=== PATIENT | male | born 1945 | race Hispanic/Latino ===

== ENCOUNTER 2019-10-20 07:10 | Emergency (ER) | payer MEDICARE ==
[~2019-10-20] VITALS: Ht 167.6 cm; Wt 75.7 kg
[2019-10-20] MEDS ORDERED: MACROBID 100 M100 MG PO (07:43)
--- NOTE | 2019-10-20 07:43 | Emergency Department Note ---
History of Present Illnes History of Present Illness Chief Complaint: suprapubic pain, unable to urinate History of Present Illness This is a 74 year old male. h/o bph, urinary retention and is on flomax. 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 History limited by: condition of the patient Onset (how long ago): hour(s) (5.5) Location: suprapubic Quality: sharp Radiation: Reports non-radiation Severity: moderate Onset quality: gradual Duration (how long): hour(s) (5.5) Timing of current episode: constant Progression: worsening Chronicity: recurrent Context: Denies recent illness, Denies recent surgery, Denies recent immobilization, Denies trauma/injury, Denies new medications, Denies hx of DVT/PE, Denies non-compliance w/ medications Relieving factors: none Exacerbating factors: none Associated symptoms: Reports denies other symptoms Treatments prior to arrival: none Past Medical/Family History Physician Review I have reviewed the patient's past medical and family history. Any updates have been documented here. Past Medical History Recent Fever: No Clinical Suspicion of Infectio: No New/Unexplained Change in Ment: No Past Medical History: Hypertension, Diabetes Other Medical History: BPH Social History Smoking Cessation: Never Smoker Alcohol Use: None Any Illegal Drug Use: No Other Any Pre-Existing Lines (PICC,: No Review of Systems Review of Systems Constitutional: Reports no symptoms EENTM: Reports no symptoms Cardiovascular: Reports no symptoms Respiratory: Reports no symptoms Gastrointestinal: Reports as per HPI, Reports abdominal pain Genitourinary: Reports as per HPI Musculoskeletal: Reports no symptoms Integumentary: Reports no symptoms Neurological: Reports no symptoms Psychological: Reports no symptoms Endocrine: Reports no symptoms Hematological/Lymphatic: Reports no symptoms Review of other systems: All other systems negative Physical Exam Related Data Vital signs reviewed: Yes Physical Exam CONSTITUTIONAL Constitutional: Present well-developed, Present well-nourished HENT HENT: Present normocephalic, Present atraumatic, Present oropharynx eloina r/moist, Present nose normal HENT L/R: Present left ext ear normal, Present right ext ear normal EYES Eyes: Reports PERRL, Reports conjunctivae normal NECK Neck: Present ROM normal PULMONARY Pulmonary: Present effort normal, Present breath sounds normal CARDIOVASCULAR Cardiovascular: Present regular rhythm, Present heart sounds normal, Present capillary refill normal, Present normal rate GASTROINTESTINAL Abdominal: Present soft, Present bowel sounds normal, Present distension, Present tender (suprapubic), Present guarding GENITOURINARY Genitourinary: Present exam deferred SKIN Skin: Present warm, Present dry MUSCULOSKELETAL Musculoskeletal: Present ROM normal NEUROLOGICAL Neurological: Present alert, Present oriented x 3, Present no gross motor or sensory deficits PSYCHOLOGICAL Psychological: Present mood/affect normal, Present judgement normal Assessment & Plan Medical Decision Making MDM 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
== END 2019-10-20 08:01 | disposition home or self-care (01) ==
LOC: FSED 07:27
DX: R33.9 Retention of urine, unspecified (principal); N40.1 Benign prostatic hyperplasia with lower urinary tract symptoms; R10.30 Lower abdominal pain, unspecified; I10 Essential (primary) hypertension; E11.9 Type 2 diabetes mellitus without complications
CPT/HCPCS: 51700; 99283

== ENCOUNTER 2019-10-20 19:24 | Emergency (ER) | payer MEDICARE ==
[~2019-10-20] VITALS: Ht 167.6 cm; Wt 75.7 kg
[~2019-10-20 19:24] MED LIST: MACROBID 100 M100 MG PO
--- NOTE | 2019-10-20 19:49 | NUR ---
REMOVED EXISTING MCKENZIE, MCKENZIE INTACT, PLACED NEW MCKENZIE CATH SIZE 18 AZERI, INSTRUCTED PT TO MCKENZIE UP WITH UROLOGIST, PT STATED HE HAS AN APPOINTMENT ON THE OF THIS MONTH.
--- NOTE | 2019-10-20 19:55 | Emergency Department Note ---
History of Present Illnes History of Present Illness Chief Complaint: urine leaking around curtis History of Present Illness This is a 74 year old male. pt had curtis placement today by me secondary to urinary retention secondary to bph Historian: Patient Arrival Mode: Car History limited by: condition of the patient Onset (how long ago): hour(s) (4) Location: penis Quality: moderate Radiation: Reports non-radiation Severity: moderate Onset quality: gradual Duration (how long): hour(s) (4) Timing of current episode: intermittent Progression: unchanged Chronicity: new Context: Denies recent illness, Denies recent surgery, Denies recent immobilization, Denies recent travel, Denies trauma/injury, Denies new medications, Denies hx of DVT/PE, Denies non-compliance w/ medications Relieving factors: none Exacerbating factors: none Associated symptoms: Reports denies other symptoms Treatments prior to arrival: none Past Medical/Family History Physician Review I have reviewed the patient's past medical and family history. Any updates have been documented here. Past Medical History Recent Fever: No Clinical Suspicion of Infectio: No New/Unexplained Change in Ment: No Past Medical History: Hypertension, Diabetes Other Medical History: BPH Past Surgical History: None Social History Smoking Cessation: Never Smoker Counseling Performed: No Alcohol Use: None Any Illegal Drug Use: No Other Any Pre-Existing Lines (PICC,: No Review of Systems Review of Systems Constitutional: Reports no symptoms EENTM: Reports no symptoms Cardiovascular: Reports no symptoms Respiratory: Reports no symptoms Gastrointestinal: Reports no symptoms Genitourinary: Reports as per HPI Musculoskeletal: Reports no symptoms Integumentary: Reports no symptoms Neurological: Reports no symptoms Psychological: Reports no symptoms Endocrine: Reports no symptoms Hematological/Lymphatic: Reports no symptoms Review of other systems: All other systems negative Physical Exam Related Data Triage Vital Signs Vital Signs Date Time Temp Pulse Resp B/P (MAP) Pulse Ox O2 Delivery O2 Flow Rate FiO2 10/20/19 19:41 98.4 94 16 167/84 98 Room Air Vital signs reviewed: Yes Physical Exam CONSTITUTIONAL Constitutional: Present well-developed, Present well-nourished HENT HENT: Present normocephalic, Present atraumatic, Present oropharynx clear/moist, Present nose normal HENT L/R: Present left ext ear normal, Present right ext ear normal EYES Eyes: Reports PERRL, Reports conjunctivae normal NECK Neck: Present ROM normal PULMONARY Pulmonary: Present effort normal, Present breath sounds normal CARDIOVASCULAR Cardiovascular: Present regular rhythm, Present heart sounds normal, Present capillary refill normal, Present normal rate GASTROINTESTINAL Abdominal: Present soft, Present nontender, Present bowel sounds normal GENITOURINARY Genitourinary: Present penis normal (curtis catheter in place) SKIN Skin: Present warm, Present dry MUSCULOSKELETAL Musculoskeletal: Present ROM normal NEUROLOGICAL Neurological: Present alert, Present oriented x 3, Present no gross motor or sensory deficits PSYCHOLOGICAL Psychological: Present mood/affect normal, Present judgement normal Assessment & Plan Medical Decision Making MDM urinary incontinence Reassessment Reassessment curtis was changed to a larger curtis(17 [place] island[place]) Assessment & Plan Final Impression: (1) Urinary incontinence Depart Disposition: HOME, SELF-CARE Last Vital Signs Date Time Temp Pulse Resp B/P (MAP) Pulse Ox O2 Delivery O2 Flow Rate FiO2 10/20/19 19:41 98.4 94 16 167/84 98 Room Air Home Meds Active Scripts Nitrofurantoin Monohyd/M-Cryst (MACROBID 100 MG CAPSULE) 100 Mg Capsule, 100 MG PO Q12H for 14 Days, #28 CAP Prov:MARIE HARE 10/20/19 MARIE HARE Oct 20, 2019 19:54
== END 2019-10-20 20:15 | disposition home or self-care (01) ==
LOC: FSED 19:46
DX: R32 Unspecified urinary incontinence (principal); I10 Essential (primary) hypertension; E11.9 Type 2 diabetes mellitus without complications
CPT/HCPCS: 51700; 99283

== ENCOUNTER 2022-05-12 18:12 | Inpatient (IN) | payer MEDICARE ==
[~2022-05-12] VITALS: Ht 167.6 cm; Wt 64.9 kg
[~2022-05-12 18:12] MED LIST changes: +NAPROXEN250 MG PO
[2022-05-12] MEDS ORDERED: ONDANSETRON HCL INJ 2MG/ML 2ML 2 MG/ML VIAL IV STA (18:39)
[2022-05-12] MEDS ORDERED: SODIUM CHLORIDE FLUSH 10 ML SYR IV PRN (18:45)
[2022-05-12] MEDS ORDERED: ASPIRIN 81 MG CHEW TAB PO ONE ×2 (18:45→21:45)
[2022-05-12 18:46] LABS: BASOPHILS % 0.6 % (0.0-1.0); EOSINOPHILS % 0.5 % (0.0-6.0); HEMATOCRIT 34.2 % (38.2-49.6); HEMOGLOBIN 10.8 g/dL (14.0-18.0); LYMPHOCYTES # (AUTO) 2.5 (1.0-3.2); LYMPHOCYTES % 39.7 % (18.0-39.1); MEAN CORPUSCULAR HEMOGLOBIN 27.6 pg (28-32); MEAN CORPUSCULAR HGB CONC 31.6 g/dL (31-35); MEAN CORPUSCULAR VOLUME 87.2 fL (81-99); MONOCYTES # (AUTO) 0.5 (0.2-0.8); MONOCYTES % 8.5 % (4.4-11.3); NEUTROPHILS # (AUTO) 3.2 (2.1-6.9); NEUTROPHILS % 50.5 % (38.7-80.0); PLATELET COUNT 210 x10e3/uL (140-360); RED BLOOD COUNT 3.92 x10e6/uL (4.3-5.7); RED CELL DISTRIBUTION WIDTH 16.6 % (11.7-14.4)
[2022-05-12 19:00] LABS: ALBUMIN 2.7 g/dL (3.5-5.0); ALBUMIN/GLOBULIN RATIO 0.8 (0.8-2.0); CALCIUM 9.2 mg/dL (8.4-10.2); CREATININE, SERUM 1.21 mg/dL (0.72-1.25)
[2022-05-12] MEDS ORDERED: ONDANSETRON HCL INJ 2MG/ML 2ML 2 MG/ML VIAL IV PRN (21:45)
[2022-05-12] MEDS ORDERED: SODIUM CHLORIDE FLUSH 10 ML SYR INJ PRN (21:45)
[2022-05-13] VITALS (9 sets, daily range): BP systolic 128–143; BP diastolic 64–75
[2022-05-13] MEDS: ENOXAPARIN SOD INJ 60 MG/0.6 ML SYR SC SCH ×3 (00:30→21:52)
[2022-05-13 08:02] LABS: BASOPHILS # (AUTO) 0.1 (0.0-0.1); BASOPHILS % 0.9 % (0.0-1.0); EOSINOPHILS # (AUTO) 0.1 (0.0-0.4); EOSINOPHILS % 1.8 % (0.0-6.0); HEMATOCRIT 31.2 % (38.2-49.6); HEMOGLOBIN 9.9 g/dL (14.0-18.0); LYMPHOCYTES # (AUTO) 2.2 (1.0-3.2); LYMPHOCYTES % 34.3 % (18.0-39.1); MEAN CORPUSCULAR HEMOGLOBIN 27.6 pg (28-32); MEAN CORPUSCULAR HGB CONC 31.7 g/dL (31-35); MEAN CORPUSCULAR VOLUME 86.9 fL (81-99); MONOCYTES # (AUTO) 0.6 (0.2-0.8); MONOCYTES % 9.6 % (4.4-11.3); NEUTROPHILS # (AUTO) 3.5 (2.1-6.9); NEUTROPHILS % 53.2 % (38.7-80.0); PLATELET COUNT 192 x10e3/uL (140-360); RED BLOOD COUNT 3.59 x10e6/uL (4.3-5.7); RED CELL DISTRIBUTION WIDTH 16.5 % (11.7-14.4)
[2022-05-13] MEDS: ASPIRIN 81 MG ENTERIC COATED PO SCH (08:41)
[2022-05-13 08:42] LABS: ALBUMIN 2.3 g/dL (3.5-5.0); ALBUMIN/GLOBULIN RATIO 0.8 (0.8-2.0); CALCIUM 8.9 mg/dL (8.4-10.2); CREATININE, SERUM 1.07 mg/dL (0.72-1.25)
[2022-05-13] MEDS ORDERED: FERROUS SULFAT325 MG PO (12:22)
[2022-05-13] MEDS ORDERED: TIMOPTIC 0.5%1 EACH OD (12:22)
[2022-05-13] MEDS ORDERED: CARBIDOPA-LEVO1 EA10 (12:22)
[2022-05-13] MEDS ORDERED: ROSUVASTATIN CA10 MG (12:22)
[2022-05-13] MEDS ORDERED: FLOMAX0.4 MG PO (12:22)
[2022-05-13] MEDS ORDERED: METFORMIN HCL500 MG PO (12:22)
[2022-05-13] MEDS ORDERED: BENICAR20 MG PO (12:22)
[2022-05-13 16:20] LABS: CREATINE KINASE MB 1.9 ng/mL (0-5.0)
[2022-05-13] MEDS: TAMSULOSIN HCL 0.4 MG CAP PO SCH (21:52)
[2022-05-13] MEDS: CARBIDOPA/LEVODOPA 25/100 TAB PO SCH (21:52)
[2022-05-14] VITALS (8 sets, daily range): BP systolic 105–133; BP diastolic 59–70
[2022-05-14 00:45] LABS: % IRON SATURATION 8 % (15-50); IRON 22 ug/dL (65-175); TOTAL IRON BINDING CAPACITY 286 ug/dL (261-478); TRANSFERRIN 204 mg/dL (174-364)
[2022-05-14 06:44] LABS: BASOPHILS # (AUTO) 0.1 (0.0-0.1); BASOPHILS % 0.9 % (0.0-1.0); EOSINOPHILS # (AUTO) 0.1 (0.0-0.4); EOSINOPHILS % 1.9 % (0.0-6.0); HEMATOCRIT 28.1 % (38.2-49.6); HEMOGLOBIN 8.9 g/dL (14.0-18.0); LYMPHOCYTES % 35.2 % (18.0-39.1); MEAN CORPUSCULAR HEMOGLOBIN 27.3 pg (28-32); MEAN CORPUSCULAR HGB CONC 31.7 g/dL (31-35); MEAN CORPUSCULAR VOLUME 86.2 fL (81-99); MONOCYTES # (AUTO) 0.5 (0.2-0.8); MONOCYTES % 8.3 % (4.4-11.3); NEUTROPHILS # (AUTO) 3.1 (2.1-6.9); NEUTROPHILS % 53.5 % (38.7-80.0); PLATELET COUNT 165 x10e3/uL (140-360); RED BLOOD COUNT 3.26 x10e6/uL (4.3-5.7); RED CELL DISTRIBUTION WIDTH 16.3 % (11.7-14.4)
[2022-05-14 07:09] LABS: ANION GAP 11.9 mmol/L (8-16); CREATININE, SERUM 1.04 mg/dL (0.72-1.25); MAGNESIUM 1.8 MG/DL (1.3-2.1); PHOSPHORUS 3.2 MG/DL (2.3-4.7); POTASSIUM 3.9 mmol/L (3.5-5.1)
[2022-05-14 07:18] LABS: CREATINE KINASE MB 1.8 ng/mL (0-5.0)
[2022-05-14] MEDS: ASPIRIN 81 MG ENTERIC COATED PO SCH (09:36)
[2022-05-14] MEDS: CARBIDOPA/LEVODOPA 25/100 TAB PO SCH (09:36)
[2022-05-14] MEDS: ENOXAPARIN SOD INJ 60 MG/0.6 ML SYR SC SCH ×2 (09:36→21:51)
[2022-05-14] MEDS: TAMSULOSIN HCL 0.4 MG CAP PO SCH (17:46)
[2022-05-15] VITALS (16 sets, daily range): BP systolic 76–116; BP diastolic 48–60
[2022-05-15] MEDS: CARBIDOPA/LEVODOPA 25/100 TAB PO SCH (09:00)
[2022-05-15] MEDS: ASPIRIN 81 MG ENTERIC COATED PO SCH (09:00)
[2022-05-15] MEDS: ENOXAPARIN SOD INJ 60 MG/0.6 ML SYR SC SCH ×2 (09:17→21:08)
[2022-05-15] MEDS: IRON SUCROSE 100 MG in SODIUM CHLORIDE 0.9% 100 ML IV SCH (09:18)
[2022-05-15 11:26] LABS: INR 1.25; PROTHROMBIN TIME 16.2 seconds (11.9-14.5)
[2022-05-15 15:45] LABS: BASOPHILS % 0.3 % (0.0-1.0); HEMATOCRIT 24.7 % (38.2-49.6); LYMPHOCYTES # (AUTO) 1.6 (1.0-3.2); LYMPHOCYTES % 28.3 % (18.0-39.1); MEAN CORPUSCULAR HEMOGLOBIN 27.8 pg (28-32); MEAN CORPUSCULAR HGB CONC 32.4 g/dL (31-35); MEAN CORPUSCULAR VOLUME 85.8 fL (81-99); MONOCYTES # (AUTO) 0.4 (0.2-0.8); MONOCYTES % 6.4 % (4.4-11.3); NEUTROPHILS # (AUTO) 3.7 (2.1-6.9); NEUTROPHILS % 64.8 % (38.7-80.0); PLATELET COUNT 183 x10e3/uL (140-360); RED BLOOD COUNT 2.88 x10e6/uL (4.3-5.7); RED CELL DISTRIBUTION WIDTH 16.6 % (11.7-14.4)
[2022-05-15 16:04] LABS: ANION GAP 14.1 mmol/L (8-16); CALCIUM 8.4 mg/dL (8.4-10.2); CREATININE, SERUM 1.12 mg/dL (0.72-1.25); POTASSIUM 4.1 mmol/L (3.5-5.1)
[2022-05-15] MEDS: TAMSULOSIN HCL 0.4 MG CAP PO SCH (17:00)
[2022-05-15 17:51] LABS: ABG PH 7.63 (7.35-7.45)
[2022-05-15] MEDS: LACTATED RINGER'S 1,000 ML INJ SCH (17:56)
[2022-05-16] VITALS (37 sets, daily range): BP systolic 70–113; BP diastolic 45–91
[2022-05-16] MEDS: LACTATED RINGER'S 1,000 ML INJ SCH ×3 (03:36→21:31)
[2022-05-16] MEDS ORDERED: RIFAXIMIN 550 MG TABLET PO STA (03:57)
[2022-05-16] MEDS ORDERED: LACTULOSE SYRUP 20 GM/30 ML UDC RC ONE (04:00)
[2022-05-16] MEDS ORDERED: LACTULOSE SYRUP 20 GM/30 ML UDC ONE (04:12)
[2022-05-16 06:36] LABS: BASOPHILS % 0.3 % (0.0-1.0); HEMATOCRIT 21.6 % (38.2-49.6); HEMOGLOBIN 7.1 g/dL (14.0-18.0); LYMPHOCYTES # (AUTO) 1.2 (1.0-3.2); LYMPHOCYTES % 16.2 % (18.0-39.1); MEAN CORPUSCULAR HEMOGLOBIN 27.4 pg (28-32); MEAN CORPUSCULAR HGB CONC 32.9 g/dL (31-35); MEAN CORPUSCULAR VOLUME 83.4 fL (81-99); MONOCYTES # (AUTO) 0.4 (0.2-0.8); MONOCYTES % 4.8 % (4.4-11.3); NEUTROPHILS # (AUTO) 5.8 (2.1-6.9); NEUTROPHILS % 78.3 % (38.7-80.0); PLATELET COUNT 211 x10e3/uL (140-360); RED BLOOD COUNT 2.59 x10e6/uL (4.3-5.7); RED CELL DISTRIBUTION WIDTH 16.6 % (11.7-14.4)
[2022-05-16 07:06] LABS: ALBUMIN 1.9 g/dL (3.5-5.0); ALBUMIN/GLOBULIN RATIO 0.7 (0.8-2.0); ANION GAP 15.4 mmol/L (8-16); CALCIUM 8.2 mg/dL (8.4-10.2); CREATININE, SERUM 1.55 mg/dL (0.72-1.25); POTASSIUM 3.4 mmol/L (3.5-5.1)
[2022-05-16] MEDS: ASPIRIN 81 MG ENTERIC COATED PO SCH (08:21)
[2022-05-16] MEDS: RIFAXIMIN 550 MG TABLET PO SCH ×2 (08:21→16:05)
[2022-05-16] MEDS: LACTULOSE SYRUP 20 GM/30 ML UDC PO SCH ×2 (08:21→16:05)
[2022-05-16] MEDS: IRON SUCROSE 100 MG in SODIUM CHLORIDE 0.9% 100 ML IV SCH (10:00)
[2022-05-16 10:10] LABS: BODY FLUID APPEARANCE SL.CLOUDY; BODY FLUID COLOR YELLOW; BODY FLUID TYPE PERITONEAL; RBC,BODY FLUID 1000 cells/uL; WBC,BODY FLUID 221 cells/uL
[2022-05-16 10:43] LABS: LYMPHOCYTES,BODY FLUID 76 %
[2022-05-16 11:06] LABS: OTHER CELLS,BODY FLUID 24 %
[2022-05-16] MEDS ORDERED: LACTULOSE SYRUP 20 GM/30 ML UDC RC SCH (12:00)
[2022-05-16] MEDS ORDERED: ALBUMIN 25% 25GM 100ML 0.25 GM/ML BTL IV ONE (15:30)
[2022-05-16] MEDS ORDERED: VASOPRESSIN 60 UNIT in DEXTROSE 5% 50ML 57 ML IV SCH (15:30)
[2022-05-16] MEDS ORDERED: ALBUMIN 25% 25GM 100ML 200 ML IV ONE (16:00)
[2022-05-16] MEDS: TAMSULOSIN HCL 0.4 MG CAP PO SCH (16:05)
[2022-05-16] MEDS ORDERED: SODIUM CHLORIDE 0.9% 250ML 250 ML IV ONE (16:15)
[2022-05-16 16:27] LABS: ABG HCO3 17 mmol/L (22-26); ABG PCO2 17 mmHg (35-45); ABG PH 7.61 (7.35-7.45); ABG PO2 103 mmHg (80-105); ABG TCO2 17
[2022-05-16] MEDS ORDERED: HEPARIN SOD (PORCINE) 5,000 UNIT/ML VIAL SC SCH (21:00)
[2022-05-17] VITALS (61 sets, daily range): BP systolic 79–140; BP diastolic 47–85
[2022-05-17 01:08] LABS: CLARITY,URINE TURBID (CLEAR); COLOR,URINE RED (YELLOW); KETONES,URINE 1+ (NEGATIVE); LEUKOCYTE ESTERASE ,URINE LARGE (NEGATIVE); NITRITE,URINE POSITIVE (NEGATIVE); PROTEIN,URINE DIPSTICK >=300 (NEGATIVE); RBC,URINE >50 /HPF (0-5); URINE UROBILINOGEN 1 mg/dL (0.2 - 1)
[2022-05-17 01:09] LABS: BACTERIA,URINE FEW /HPF; EPITHELIAL CELLS,URINE RARE /LPF
[2022-05-17 01:20] LABS: CREATININE,URINE RANDOM 47.51 mg/dL (63-166); SODIUM,URINE 40 mmol/L
[2022-05-17 01:32] LABS: TOTAL PROTEIN, URINE 1394.2 mg/dL (1-14)
[2022-05-17] MEDS ORDERED: SODIUM CHLORIDE 0.9% 250ML 250 ML ONE (01:49)
[2022-05-17 07:04] LABS: BASOPHILS % 0.1 % (0.0-1.0); HEMATOCRIT 24.6 % (38.2-49.6); HEMOGLOBIN 8.1 g/dL (14.0-18.0); LYMPHOCYTES # (AUTO) 2.2 (1.0-3.2); LYMPHOCYTES % 24.3 % (18.0-39.1); MEAN CORPUSCULAR HEMOGLOBIN 27.8 pg (28-32); MEAN CORPUSCULAR HGB CONC 32.9 g/dL (31-35); MEAN CORPUSCULAR VOLUME 84.5 fL (81-99); MONOCYTES # (AUTO) 0.6 (0.2-0.8); MONOCYTES % 6.1 % (4.4-11.3); NEUTROPHILS # (AUTO) 6.2 (2.1-6.9); NEUTROPHILS % 69.3 % (38.7-80.0); PLATELET COUNT 168 x10e3/uL (140-360); RED BLOOD COUNT 2.91 x10e6/uL (4.3-5.7); RED CELL DISTRIBUTION WIDTH 15.5 % (11.7-14.4)
[2022-05-17 07:28] LABS: ALBUMIN 2.3 g/dL (3.5-5.0); ANION GAP 15.1 mmol/L (8-16); CALCIUM 8.2 mg/dL (8.4-10.2); CREATININE, SERUM 1.91 mg/dL (0.72-1.25); POTASSIUM 3.1 mmol/L (3.5-5.1)
[2022-05-17] MEDS: LACTULOSE SYRUP 20 GM/30 ML UDC PO SCH ×2 (08:51→17:00)
[2022-05-17] MEDS: RIFAXIMIN 550 MG TABLET PO SCH ×2 (08:51→17:00)
[2022-05-17] MEDS: IRON SUCROSE 100 MG in SODIUM CHLORIDE 0.9% 100 ML IV SCH (10:23)
[2022-05-17 12:11] LABS: INR 1.34; PROTHROMBIN TIME 17.1 seconds (11.9-14.5)
[2022-05-17 12:12] LABS: PARTIAL THROMBOPLASTIN TIME 50.5 seconds (23.8-35.5)
[2022-05-17 12:37] LABS: HEMATOCRIT 24.8 % (38.2-49.6); HEMOGLOBIN 8.4 g/dL (14.0-18.0)
[2022-05-17] MEDS ORDERED: SODIUM BICARBONATE 8.4% 50 ML in DEXTROSE 5% 1,000 ML IV ONE (13:00)
[2022-05-17] MEDS: TAMSULOSIN HCL 0.4 MG CAP PO SCH (17:00)
[2022-05-17] MEDS: TRAMADOL HCL 50 MG TAB NG PRN (23:14)
[2022-05-18] VITALS (48 sets, daily range): BP systolic 112–161; BP diastolic 53–120
[2022-05-18] MEDS ORDERED: SODIUM CHLORIDE 0.9% 250ML 250 ML ONE ×2 (00:31→07:45)
[2022-05-18] MEDS: TRAMADOL HCL 50 MG TAB NG PRN ×3 (04:43→23:13)
[2022-05-18 06:22] LABS: BASOPHILS % 0.1 % (0.0-1.0); EOSINOPHILS % 0.2 % (0.0-6.0); LYMPHOCYTES # (AUTO) 1.9 (1.0-3.2); LYMPHOCYTES % 22.8 % (18.0-39.1); MEAN CORPUSCULAR HEMOGLOBIN 28.2 pg (28-32); MEAN CORPUSCULAR HGB CONC 32.5 g/dL (31-35); MEAN CORPUSCULAR VOLUME 86.8 fL (81-99); MONOCYTES # (AUTO) 0.5 (0.2-0.8); MONOCYTES % 5.7 % (4.4-11.3); NEUTROPHILS # (AUTO) 5.9 (2.1-6.9); NEUTROPHILS % 70.8 % (38.7-80.0); PLATELET COUNT 163 x10e3/uL (140-360); RED BLOOD COUNT 2.27 x10e6/uL (4.3-5.7); RED CELL DISTRIBUTION WIDTH 16.8 % (11.7-14.4)
[2022-05-18 06:30] LABS: HEMATOCRIT 19.7 % (38.2-49.6)
[2022-05-18 06:31] LABS: HEMOGLOBIN 6.4 g/dL (14.0-18.0)
[2022-05-18 06:41] LABS: ALBUMIN 2.3 g/dL (3.5-5.0); ANION GAP 10.4 mmol/L (8-16); CALCIUM 8.2 mg/dL (8.4-10.2); CREATININE, SERUM 1.67 mg/dL (0.72-1.25)
[2022-05-18 06:45] LABS: POTASSIUM 2.4 mmol/L (3.5-5.1)
[2022-05-18 06:55] LABS: HEMOGLOBIN 6.2 g/dL (14.0-18.0)
[2022-05-18 06:56] LABS: HEMATOCRIT 19.1 % (38.2-49.6)
[2022-05-18] MEDS ORDERED: SODIUM CHLORIDE 0.9% 250ML 250 ML IV ONE (08:30)
[2022-05-18] MEDS: LACTULOSE SYRUP 20 GM/30 ML UDC PO SCH ×3 (09:00→19:06)
[2022-05-18] MEDS: RIFAXIMIN 550 MG TABLET PO SCH ×3 (09:00→19:06)
[2022-05-18] MEDS: POTASSIUM CHLORIDE 20MEQ/100ML 100 ML IV SCH ×2 (10:52→14:49)
[2022-05-18] MEDS: IRON SUCROSE 100 MG in SODIUM CHLORIDE 0.9% 100 ML IV SCH (14:28)
[2022-05-18] MEDS: TAMSULOSIN HCL 0.4 MG CAP PO SCH ×2 (17:00→19:06)
[2022-05-18 18:05] LABS: HEMATOCRIT 26.4 % (38.2-49.6); HEMOGLOBIN 8.7 g/dL (14.0-18.0)
[2022-05-18] MEDS: DEXTROSE 5% 1,000 ML IV SCH (18:34)
[2022-05-18] MEDS ORDERED: POTASSIUM CHLORIDE 20MEQ/100ML 100 ML IV ONE (19:45)
[2022-05-19] VITALS (25 sets, daily range): BP systolic 104–152; BP diastolic 56–81
[2022-05-19 00:48] LABS: HEMATOCRIT 22.5 % (38.2-49.6); HEMOGLOBIN 7.2 g/dL (14.0-18.0)
[2022-05-19 01:29] LABS: INR 1.21; PROTHROMBIN TIME 15.8 seconds (11.9-14.5)
[2022-05-19 01:30] LABS: PARTIAL THROMBOPLASTIN TIME 44.9 seconds (23.8-35.5)
[2022-05-19] MEDS: TRAMADOL HCL 50 MG TAB NG PRN (04:37)
[2022-05-19] MEDS ORDERED: SODIUM CHLORIDE 0.9% 250ML 250 ML ONE (05:31)
[2022-05-19] MEDS ORDERED: DEXMEDETOMIDINE 400MCG/NS100ML 100 ML IV PRN (08:00)
[2022-05-19] MEDS: LACTULOSE SYRUP 20 GM/30 ML UDC PO SCH ×2 (08:13→16:04)
[2022-05-19] MEDS: RIFAXIMIN 550 MG TABLET PO SCH ×2 (08:13→16:04)
[2022-05-19] MEDS: IRON SUCROSE 100 MG in SODIUM CHLORIDE 0.9% 100 ML IV SCH (09:00)
[2022-05-19] MEDS: DEXTROSE 5% 1,000 ML IV SCH (09:26)
[2022-05-19 09:35] LABS: BASOPHILS % 0.1 % (0.0-1.0); EOSINOPHILS # (AUTO) 0.1 (0.0-0.4); EOSINOPHILS % 1.3 % (0.0-6.0); HEMATOCRIT 23.9 % (38.2-49.6); HEMOGLOBIN 7.7 g/dL (14.0-18.0); LYMPHOCYTES % 20.5 % (18.0-39.1); MEAN CORPUSCULAR HEMOGLOBIN 28.4 pg (28-32); MEAN CORPUSCULAR HGB CONC 32.2 g/dL (31-35); MEAN CORPUSCULAR VOLUME 88.2 fL (81-99); MONOCYTES # (AUTO) 0.8 (0.2-0.8); MONOCYTES % 7.8 % (4.4-11.3); NEUTROPHILS # (AUTO) 6.8 (2.1-6.9); NEUTROPHILS % 69.4 % (38.7-80.0); PLATELET COUNT 139 x10e3/uL (140-360); RED BLOOD COUNT 2.71 x10e6/uL (4.3-5.7); RED CELL DISTRIBUTION WIDTH 16.6 % (11.7-14.4)
[2022-05-19 09:56] LABS: ALBUMIN 2.3 g/dL (3.5-5.0); ALBUMIN/GLOBULIN RATIO 0.8 (0.8-2.0); ANION GAP 13.2 mmol/L (8-16); CALCIUM 8.5 mg/dL (8.4-10.2); CREATININE, SERUM 1.43 mg/dL (0.72-1.25); POTASSIUM 3.2 mmol/L (3.5-5.1)
[2022-05-19] MEDS ORDERED: POTASSIUM CHLORIDE 20MEQ/100ML 200 ML IV ONE (11:45)
[2022-05-19 15:32] LABS: INR 1.07; PROTHROMBIN TIME 14.4 seconds (11.9-14.5)
[2022-05-19 15:33] LABS: PARTIAL THROMBOPLASTIN TIME 41.1 seconds (23.8-35.5)
[2022-05-19] MEDS: TAMSULOSIN HCL 0.4 MG CAP PO SCH (16:04)
[2022-05-19 18:23] LABS: HEMOGLOBIN 7.7 g/dL (14.0-18.0)
[2022-05-20] VITALS (22 sets, daily range): BP systolic 98–141; BP diastolic 67–102
[2022-05-20 06:45] LABS: BASOPHILS % 0.4 % (0.0-1.0); EOSINOPHILS # (AUTO) 0.4 (0.0-0.4); EOSINOPHILS % 4.4 % (0.0-6.0); HEMATOCRIT 25.2 % (38.2-49.6); HEMOGLOBIN 8.1 g/dL (14.0-18.0); LYMPHOCYTES # (AUTO) 1.9 (1.0-3.2); LYMPHOCYTES % 21.2 % (18.0-39.1); MEAN CORPUSCULAR HEMOGLOBIN 28.8 pg (28-32); MEAN CORPUSCULAR HGB CONC 32.1 g/dL (31-35); MEAN CORPUSCULAR VOLUME 89.7 fL (81-99); MONOCYTES # (AUTO) 0.7 (0.2-0.8); MONOCYTES % 7.5 % (4.4-11.3); NEUTROPHILS # (AUTO) 5.8 (2.1-6.9); NEUTROPHILS % 64.7 % (38.7-80.0); PLATELET COUNT 140 x10e3/uL (140-360); RED BLOOD COUNT 2.81 x10e6/uL (4.3-5.7); RED CELL DISTRIBUTION WIDTH 17.8 % (11.7-14.4)
[2022-05-20 06:49] LABS: INR 1.02; PROTHROMBIN TIME 13.9 seconds (11.9-14.5)
[2022-05-20 06:50] LABS: PARTIAL THROMBOPLASTIN TIME 38.8 seconds (23.8-35.5)
[2022-05-20 07:00] LABS: ALBUMIN 2.3 g/dL (3.5-5.0); ALBUMIN/GLOBULIN RATIO 0.9 (0.8-2.0); ANION GAP 10.6 mmol/L (8-16); CALCIUM 8.2 mg/dL (8.4-10.2); CREATININE, SERUM 0.98 mg/dL (0.72-1.25); POTASSIUM 3.6 mmol/L (3.5-5.1)
[2022-05-20] MEDS: RIFAXIMIN 550 MG TABLET PO SCH ×2 (11:27→19:17)
[2022-05-20] MEDS: LACTULOSE SYRUP 20 GM/30 ML UDC PO SCH ×2 (11:27→19:16)
[2022-05-20] MEDS: TRAMADOL HCL 50 MG TAB NG PRN (11:27)
[2022-05-20] MEDS: CARBIDOPA/LEVODOPA 25/100 TAB PO SCH (19:17)
[2022-05-20] MEDS: TAMSULOSIN HCL 0.4 MG CAP PO SCH (19:17)
[2022-05-21] VITALS (8 sets, daily range): BP systolic 94–140; BP diastolic 54–75
[2022-05-21 06:40] LABS: BASOPHILS % 0.2 % (0.0-1.0); EOSINOPHILS # (AUTO) 0.3 (0.0-0.4); EOSINOPHILS % 3.8 % (0.0-6.0); HEMATOCRIT 27.2 % (38.2-49.6); HEMOGLOBIN 8.5 g/dL (14.0-18.0); LYMPHOCYTES # (AUTO) 1.7 (1.0-3.2); LYMPHOCYTES % 19.7 % (18.0-39.1); MEAN CORPUSCULAR HEMOGLOBIN 28.4 pg (28-32); MEAN CORPUSCULAR HGB CONC 31.3 g/dL (31-35); MONOCYTES # (AUTO) 0.7 (0.2-0.8); MONOCYTES % 7.5 % (4.4-11.3); NEUTROPHILS # (AUTO) 5.8 (2.1-6.9); NEUTROPHILS % 67.4 % (38.7-80.0); PLATELET COUNT 152 x10e3/uL (140-360); RED BLOOD COUNT 2.99 x10e6/uL (4.3-5.7); RED CELL DISTRIBUTION WIDTH 19.2 % (11.7-14.4)
[2022-05-21 07:10] LABS: ALBUMIN 2.1 g/dL (3.5-5.0); ALBUMIN/GLOBULIN RATIO 0.7 (0.8-2.0); ANION GAP 8.8 mmol/L (8-16); CALCIUM 8.2 mg/dL (8.4-10.2); CREATININE, SERUM 0.98 mg/dL (0.72-1.25); POTASSIUM 3.8 mmol/L (3.5-5.1)
[2022-05-21] MEDS: RIFAXIMIN 550 MG TABLET PO SCH ×2 (08:16→17:08)
[2022-05-21] MEDS: LACTULOSE SYRUP 20 GM/30 ML UDC PO SCH ×2 (08:17→17:08)
[2022-05-21] MEDS: CARBIDOPA/LEVODOPA 25/100 TAB PO SCH ×2 (08:17→17:09)
[2022-05-21] MEDS: TAMSULOSIN HCL 0.4 MG CAP PO SCH (17:08)
[2022-05-21] MEDS ORDERED: SODIUM CHLORIDE 0.9% 100 ML ONE (20:49)
[2022-05-21] MEDS ORDERED: LORAZEPAM INJ 2 MG/ML VIAL IV ONE (22:30)
[2022-05-22] VITALS (8 sets, daily range): BP systolic 107–135; BP diastolic 63–96
[2022-05-22 04:52] LABS: BASOPHILS % 0.2 % (0.0-1.0); EOSINOPHILS # (AUTO) 0.3 (0.0-0.4); HEMATOCRIT 26.5 % (38.2-49.6); HEMOGLOBIN 8.2 g/dL (14.0-18.0); LYMPHOCYTES # (AUTO) 1.8 (1.0-3.2); LYMPHOCYTES % 21.3 % (18.0-39.1); MEAN CORPUSCULAR HEMOGLOBIN 30.6 pg (28-32); MEAN CORPUSCULAR HGB CONC 30.9 g/dL (31-35); MONOCYTES # (AUTO) 0.6 (0.2-0.8); MONOCYTES % 7.5 % (4.4-11.3); NEUTROPHILS # (AUTO) 5.6 (2.1-6.9); PLATELET COUNT 101 x10e3/uL (140-360); RED BLOOD COUNT 2.68 x10e6/uL (4.3-5.7); RED CELL DISTRIBUTION WIDTH 20.1 % (11.7-14.4)
[2022-05-22 04:55] LABS: MEAN CORPUSCULAR VOLUME 98.9 fL (81-99)
[2022-05-22 05:11] LABS: ALBUMIN/GLOBULIN RATIO 0.7 (0.8-2.0); ANION GAP 10.7 mmol/L (8-16); CALCIUM 8.2 mg/dL (8.4-10.2); CREATININE, SERUM 0.95 mg/dL (0.72-1.25); POTASSIUM 3.7 mmol/L (3.5-5.1)
[2022-05-22] MEDS: CARBIDOPA/LEVODOPA 25/100 TAB PO SCH ×4 (09:27→21:00)
[2022-05-22] MEDS: LACTULOSE SYRUP 20 GM/30 ML UDC PO SCH ×2 (09:27→17:27)
[2022-05-22] MEDS: RIFAXIMIN 550 MG TABLET PO SCH ×2 (09:27→17:27)
[2022-05-22 16:23] LABS: ANION GAP 11.9 mmol/L (8-16); CALCIUM 8.2 mg/dL (8.4-10.2); CREATININE, SERUM 0.99 mg/dL (0.72-1.25); POTASSIUM 3.9 mmol/L (3.5-5.1)
[2022-05-22] MEDS: TAMSULOSIN HCL 0.4 MG CAP PO SCH (17:27)
[2022-05-22] MEDS: DEXTROSE 5% 1,000 ML IV SCH (19:11)
[2022-05-23] VITALS (7 sets, daily range): BP systolic 112–145; BP diastolic 63–79
[2022-05-23 05:45] LABS: BASOPHILS % 0.3 % (0.0-1.0); EOSINOPHILS # (AUTO) 0.3 (0.0-0.4); HEMATOCRIT 25.8 % (38.2-49.6); HEMOGLOBIN 8.2 g/dL (14.0-18.0); LYMPHOCYTES # (AUTO) 1.8 (1.0-3.2); LYMPHOCYTES % 19.5 % (18.0-39.1); MEAN CORPUSCULAR HEMOGLOBIN 29.5 pg (28-32); MEAN CORPUSCULAR HGB CONC 31.8 g/dL (31-35); MEAN CORPUSCULAR VOLUME 92.8 fL (81-99); MONOCYTES # (AUTO) 0.7 (0.2-0.8); MONOCYTES % 7.5 % (4.4-11.3); NEUTROPHILS # (AUTO) 6.2 (2.1-6.9); NEUTROPHILS % 68.3 % (38.7-80.0); PLATELET COUNT 165 x10e3/uL (140-360); RED BLOOD COUNT 2.78 x10e6/uL (4.3-5.7); RED CELL DISTRIBUTION WIDTH 21.8 % (11.7-14.4)
[2022-05-23 06:22] LABS: ALBUMIN 1.8 g/dL (3.5-5.0); ALBUMIN/GLOBULIN RATIO 0.6 (0.8-2.0); ANION GAP 10.9 mmol/L (8-16); CREATININE, SERUM 0.91 mg/dL (0.72-1.25); POTASSIUM 3.9 mmol/L (3.5-5.1)
[2022-05-23] MEDS ORDERED: ONDANSETRON HCL 4 MG ORAL DISINTEGRATING TAB PO PRN (08:45)
[2022-05-23] MEDS: CARBIDOPA/LEVODOPA 25/100 TAB PO SCH ×4 (08:47→20:19)
[2022-05-23] MEDS: LACTULOSE SYRUP 20 GM/30 ML UDC PO SCH ×2 (08:47→16:41)
[2022-05-23] MEDS: DEXTROSE 5% 1,000 ML IV SCH (10:25)
[2022-05-23] MEDS: RIFAXIMIN 550 MG TABLET PO SCH ×2 (13:17→16:41)
[2022-05-23] MEDS: TAMSULOSIN HCL 0.4 MG CAP PO SCH (16:41)
[2022-05-24 02:30] VITALS: BP 115/70
[2022-05-24 04:00] VITALS: BP 107/71
[2022-05-24 08:00] VITALS: BP 131/79
[2022-05-24 08:52] VITALS: BP 131/79
[2022-05-24] MEDS: RIFAXIMIN 550 MG TABLET PO SCH ×3 (09:00→17:46)
[2022-05-24] MEDS: CARBIDOPA/LEVODOPA 25/100 TAB PO SCH ×4 (09:12→21:57)
[2022-05-24] MEDS: IRON-VITAMIN-MINERAL CAPSULE PO SCH ×2 (09:12→17:46)
[2022-05-24] MEDS: LACTULOSE SYRUP 20 GM/30 ML UDC PO SCH ×2 (09:12→17:46)
[2022-05-24 16:00] VITALS: BP 111/63
[2022-05-24] MEDS ORDERED: DEXTROSE 5% 1,000 ML IV ONE (17:30)
[2022-05-24] MEDS: TAMSULOSIN HCL 0.4 MG CAP PO SCH (17:46)
[2022-05-24] MEDS: NYSTATIN SUSPENSION 5 ML UDC PO SCH (17:46)
[2022-05-25 05:16] LABS: ANION GAP 11.1 mmol/L (8-16); CALCIUM 7.6 mg/dL (8.4-10.2); CREATININE, SERUM 1.06 mg/dL (0.72-1.25); POTASSIUM 4.1 mmol/L (3.5-5.1)
[2022-05-25] MEDS: NYSTATIN SUSPENSION 5 ML UDC PO SCH ×3 (05:41→16:58)
[2022-05-25 08:35] VITALS: BP 111/63
[2022-05-25 08:37] VITALS: BP 124/68
[2022-05-25] MEDS: CARBIDOPA/LEVODOPA 25/100 TAB PO SCH ×4 (08:41→21:14)
[2022-05-25] MEDS: LACTULOSE SYRUP 20 GM/30 ML UDC PO SCH ×2 (08:41→16:58)
[2022-05-25] MEDS: RIFAXIMIN 550 MG TABLET PO SCH ×3 (08:41→16:58)
[2022-05-25] MEDS: IRON-VITAMIN-MINERAL CAPSULE PO SCH ×2 (08:42→16:58)
[2022-05-25 11:41] VITALS: BP 119/70
[2022-05-25 16:09] VITALS: BP 103/66
[2022-05-25] MEDS: TAMSULOSIN HCL 0.4 MG CAP PO SCH (16:58)
[2022-05-25 20:00] VITALS: BP 115/70
[2022-05-25 20:15] VITALS: BP 103/66
[2022-05-26] VITALS: BP 110/67
[2022-05-26] MEDS: NYSTATIN SUSPENSION 5 ML UDC PO SCH ×4 (01:20→18:01)
[2022-05-26 05:49] VITALS: BP 125/65
[2022-05-26] MEDS: CARBIDOPA/LEVODOPA 25/100 TAB PO SCH ×3 (08:51→18:01)
[2022-05-26] MEDS: LACTULOSE SYRUP 20 GM/30 ML UDC PO SCH ×2 (08:51→18:01)
[2022-05-26] MEDS: IRON-VITAMIN-MINERAL CAPSULE PO SCH ×2 (08:51→18:01)
[2022-05-26 09:00] VITALS: BP 125/65
[2022-05-26] MEDS ORDERED: BALSAM PERU/CASTOR OIL 60 GM OINT...G. TP SCH (09:00)
[2022-05-26 12:00] VITALS: BP 148/71
[2022-05-26 16:00] VITALS: BP 92/63
[2022-05-26] MEDS: TAMSULOSIN HCL 0.4 MG CAP PO SCH (18:01)
== END 2022-05-26 20:07 | DRG 441 ==
LOC: ER 18:27 → ERHOLD 21:43 → MED/SURG3 23:41 → OBSVTOIN 05-15 08:08 → ICU 05-15 17:32 → IMCU 05-21 11:55 → MED/SURG 05-24 11:14
PROVIDERS: ADMIT Internal Medicine; ATTEND Internal Medicine
PROC: 0W9G3ZZ Drainage of Peritoneal Cavity, Percutaneous Approach (ICD-10-PCS; principal; 2022-05-15)
PROC: 02HV33Z Insertion of Infusion Device into Superior Vena Cava, Percutaneous Approach (ICD-10-PCS; 2022-05-15)
PROC: 30243N1 Transfusion of Nonautologous Red Blood Cells into Central Vein, Percutaneous Approach (ICD-10-PCS; 2022-05-15)
PROC: 30243K1 Transfusion of Nonautologous Frozen Plasma into Central Vein, Percutaneous Approach (ICD-10-PCS; 2022-05-18)
DX: K76.82 Hepatic encephalopathy (principal); E43 Unspecified severe protein-calorie malnutrition; G93.41 Metabolic encephalopathy; N17.0 Acute kidney failure with tubular necrosis; D62 Acute posthemorrhagic anemia; R18.8 Other ascites; N17.9 Acute kidney failure, unspecified; I48.92 Unspecified atrial flutter; D68.9 Coagulation defect, unspecified; S37.39XA Other injury of urethra, initial encounter; E87.0 Hyperosmolality and hypernatremia; N13.8 Other obstructive and reflux uropathy; N13.30 Unspecified hydronephrosis; E72.20 Disorder of urea cycle metabolism, unspecified; E87.1 Hypo-osmolality and hyponatremia; R63.4 Abnormal weight loss; Z68.23 Body mass index [BMI] 23.0-23.9, adult; G20 Parkinson's disease; R29.6 Repeated falls; K74.60 Unspecified cirrhosis of liver; E11.9 Type 2 diabetes mellitus without complications; R13.10 Dysphagia, unspecified; E78.5 Hyperlipidemia, unspecified; E11.69 Type 2 diabetes mellitus with other specified complication; N40.1 Benign prostatic hyperplasia with lower urinary tract symptoms; R33.8 Other retention of urine; R31.0 Gross hematuria; E83.51 Hypocalcemia; E87.6 Hypokalemia; R97.20 Elevated prostate specific antigen [PSA]; R39.14 Feeling of incomplete bladder emptying; G31.89 Other specified degenerative diseases of nervous system; D50.9 Iron deficiency anemia, unspecified
CPT/HCPCS: 36415; 36569; 36600; 49083; 70450; 70551; 71045; 74018; 74176; 74230; 76705; 76770; 76856; 76857; 80048; 80053; 81001; 82140; 82270; 82550; 82553; 82570; 82607; 82746; 82805; 82948; 83036; 83540; 83735; 83880; 84100; 84132; 84156; 84157; 84300; 84443; 84466; 84484; 84550; 85014; 85018; 85025; 85045; 85610; 85730; 86039; 86255; 86850; 86900; 86920; 87040; 87070; 87205; 88300; 88305; 88312; 89051; 93005; 93306; 93880; 93970; 94760; 94799; 95819; 99252; 99284; G0378; J0696; J1650; J1756; J2405; J2543; J3480; J7050; J7070; P9016; P9017; P9047